=== PATIENT | female | born 1940 | race Caucasian/White ===

== ENCOUNTER 2018-07-18 20:11 | Emergency (ER) | payer MEDICARE, BC, MEDICAID ==
--- NOTE | 2018-07-18 21:13 | EDM.PDOC ---
ED HPI GENERAL MEDICAL PROBLEM - General Chief Complaint: Upper Extremity Injury/Pain Stated Complaint: FALL Time Seen by Provider: 07/18/18 20:30 Source of Information: Reports: Patient - History of Present Illness INITIAL COMMENTS - FREE TEXT/NARRATIVE: pt comes just after accidental fall with right wrist pain, she slipped on ice , she denies any other injuries or concerns. 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: Reports: Cold Therapy Right Wrist Pain Score (Numeric/FACES): 5 - Related Data Allergies Allergy/AdvReac Type Severity Reaction Status Date / Time Sulfa (Sulfonamide Allergy Shortness Verified 07/18/18 20:31 Antibiotics) of Breath Home Meds: Home Meds Aspirin [Halfprin] 81 mg PO DAILY 02/19/18 [History] Cholecalciferol (Vitamin D3) [Vitamin D3] 1,000 units PO DAILY 02/19/18 [History ] Cyanocobalamin (Vitamin B-12) [B-12] 500 mcg PO DAILY 02/19/18 [History] Glimepiride [Amaryl] 1 mg PO BIDMEALS 02/19/18 [History] Levothyroxine 75 mcg PO DAILY 02/19/18 [History] Lisinopril 20 mg PO DAILY 02/19/18 [History] Loratadine 10 mg PO DAILY 02/19/18 [History] Mv-Mn/Folic Acid/Calcium/Vit K [Women's 50 Plus Daily Formula] 1 tab PO DAILY [History] Omeprazole 20 mg PO DAILY 02/19/18 [History] PARoxetine [Paxil] 40 mg PO DAILY 02/19/18 [History] Simvastatin [Zocor] 40 mg PO BEDTIME 02/19/18 [History] metFORMIN [Glucophage XR] 1,000 mg PO BIDMEALS 02/19/18 [History] Past Medical History HEENT History: Reports: Allergic Rhinitis Cardiovascular History: Reports: CAD, High Cholesterol, Hypertension Gastrointestinal History: Reports: Other (See Below) Other Gastrointestinal History: elevated liver functins 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: Musculoskeletal History: Reports: Arthritis Psychiatric History: Reports: Addiction, Anxiety, Depression, Emotional Problems Endocrine/Metabolic History: Reports: Diabetes, Type II - Past Surgical History Musculoskeletal Surgical History: Reports: Other (See Below) Other Musculoskeletal Surgeries/Procedures:: ankle surgery, "bad" knee Social & Family History - Family History Family Medical History: Noncontributory - Tobacco Use Smoking Status *Q: Never Smoker - Caffeine Use Caffeine Use: Reports: Coffee - Recreational Drug Use Recreational Drug Use: No Review of Systems - Review of Systems Review Of Systems: See Below Constitutional: Reports: No Symptoms Eyes: Reports: No Symptoms Ears: Reports: No Symptoms Respiratory: Reports: No Symptoms Cardiovascular: Reports: No Symptoms ED EXAM, GENERAL - Physical Exam Exam: See Below Exam Limited By: No Limitations General Appearance: Alert Head: Atraumatic Neck: Normal Inspection, Supple, Non-Tender, Full Range of Motion Respiratory/Chest: No Respiratory Distress, Lungs Clear Cardiovascular: Normal Peripheral Pulses, Regular Rate, Rhythm GI/Abdominal: Normal Bowel Sounds, Non-Tender Neurological: Other (pt has swelling and pain all around right wrist. ) Course - Vital Signs Text/Narrative:: xay results were explained to pt. sugar tongue splint was applied and a sling was provided. pt to use over the counter motrin or tylenol as directed if needed and to schedule follow up with orthopedics in 2 days. Last Recorded V/S: Last Vital Signs Temp 36.8 C 07/18/18 20:11 Pulse 98 07/18/18 20:11 Resp 18 07/18/18 20:11 BP 160/75 H 07/18/18 20:11 Pulse Ox 100 07/18/18 20:11 - Orders/Labs/Meds Orders: Active Orders 24 hr Category Date Time Status Wrist Comp Min 3V Rt [CR] Stat Exams 07/18/18 20:21 Taken Departure - Departure Time of Disposition: 21:12 Disposition: Home, Self-Care 01 Clinical Impression: Wrist fracture - Discharge Information Referrals: Capo Garcia MD [Primary Care Provider] - - My Orders Last 24 Hours: My Active Orders 07/18/18 20:21 Wrist Comp Min 3V Rt [CR] Stat - Assessment/Plan Last 24 Hours: My Active Orders 07/18/18 20:21 Wrist Comp Min 3V Rt [CR] Stat
[2018-07-19 01:34] VITALS: BP 160/72
--- NOTE | 2018-07-19 15:47 | CR ---
INDICATION: Pain, decreased range of motion, fall. RIGHT WRIST: Four images of the right wrist in three projections reveal a comminuted Colles type fracture of the distal radial metaphysis with anterior angulation at the fracture site. The fracture line appears to extend through the joint surface. The ulna appears to be intact. Degenerative changes of moderate degree are noted at the navicular multangular joints and of moderate to moderately severe degree at the first metacarpocarpal joint. Mild degenerative changes are noted at the radiocarpal joint additionally along the lateral aspect of the joint - radial side. IMPRESSION: 1. Colles fracture with deformity - extends through the joint surface with slight offset at the joint surface. 2. Osteoarthritis. MTDD
== END 2018-07-18 21:29 | disposition home or self-care (01) ==
LOC: FB.ED 20:11
DX: S52.531A Colles' fracture of right radius, initial encounter for closed fracture (principal); E11.9 Type 2 diabetes mellitus without complications; I10 Essential (primary) hypertension; E78.00 Pure hypercholesterolemia, unspecified; F41.9 Anxiety disorder, unspecified; F32.9 Major depressive disorder, single episode, unspecified; Z79.84 Long term (current) use of oral hypoglycemic drugs; Z88.2 Allergy status to sulfonamides; Z79.82 Long term (current) use of aspirin; Z79.899 Other long term (current) drug therapy; W00.0XXA Fall on same level due to ice and snow, initial encounter
CPT/HCPCS: 29105; 73110-RT; 99283-25

== ENCOUNTER 2018-07-28 10:39 | Day surgery (SDC) | payer MEDICARE, BC ==
[~2018-07-28 10:39] MED LIST: Lactated Ringers 1,000 ML IV SCH; ceFAZolin 2 GM in Premix Bag 1 BAG IV ONE
[2018-07-28] MEDS ORDERED: fentaNYL 100 MCG/2 ML SDV IV ONE (10:40)
[2018-07-28] MEDS ORDERED: Lactated Ringers 1,000 ML IV ONE (10:40)
[2018-07-28] MEDS ORDERED: Lidocaine 2% 100 MG/5 ML Syringe IVPUSH ONE (10:40)
[2018-07-28] MEDS ORDERED: Dexamethasone 4 MG/ML 5 ML MDV IVPUSH ONE (10:40)
[2018-07-28] MEDS ORDERED: Labetalol 20 MG/4 ML Syringe IV ONE (10:40)
[2018-07-28] MEDS ORDERED: Ondansetron 4 MG/2 ML SDV IVPUSH ONE (10:40)
[2018-07-28] MEDS ORDERED: Propofol 200 MG/20 ML SDV IV ONE (10:40)
[2018-07-28] MEDS ORDERED: Midazolam 1 MG/ML 2 ML SDV IV ONE (10:40)
[2018-07-28] MEDS ORDERED: Ketorolac 30 MG/ML SDV IVPUSH ONE (10:40)
[2018-07-28] MEDS ORDERED: HYDROmorphone 2 MG/ML SDV IV ONE (10:40)
[2018-07-28] MEDS ORDERED: Scopolamine 1.5 MG Transdermal Patch TOP ONE (11:38)
[2018-07-28] MEDS ORDERED: ceFAZolin 2 GM in Premix Bag 1 BAG IV ONE (12:00)
--- NOTE | 2018-07-28 14:06 | PCM.OPNOTE ---
- General Post-Op/Procedure Note Date of Surgery/Procedure: 07/28/18 Operative Procedure(s): orif right distal radius Findings: right distal radius fracture, closed Pre Op Diagnosis: left distal radius fracture, closed, extra-articular Post-Op Diagnosis: same Anesthesia Technique: General ET Tube Primary Surgeon: Perry You Lens And Frames Prescription Clerk: Blanca Urban EBL in mLs: 50 Complications: none Condition: Good
--- NOTE | 2018-07-28 15:04 | CR ---
INDICATION: ORIF right wrist. C-ARM IN OR, LESS THAN ONE HOUR: 0.2 minutes C-arm fluoroscopy time was utilized in OR with a cumulative dose of 0.149 mGy. Two images were obtained with the C-arm on 07/28/18 and were compared with the preoperative study of 07/18/18, revealing a plate and multiple screws fixing the comminuted distal radial metaphyseal fracture fragments in satisfactory position and alignment. No complicating process was identified. MTDD
[2018-07-28] MEDS ORDERED: Acetaminophen/Codeine 300-30 MG Tab PO ONE (15:30)
[2018-07-28 22:43] VITALS: BP 121/52
--- NOTE | 2018-07-29 10:50 | OR ---
DATE OF OPERATION: 07/28/2018 SURGEON: Perry You DO PREOPERATIVE DIAGNOSIS: Right distal radius fracture, closed, extra-articular. POSTOPERATIVE DIAGNOSIS: Right distal radius fracture, closed, extra-articular. PROCEDURES PERFORMED: 1. Open reduction and internal fixation of right distal radius fracture. 2. Application of short-arm splint. SENIOR DYNAMICS CRM DEVELOPER: Blanca Urban NP. Nurse practitioner, Blanca Urban NP, played an essential role in assisting in this case, helping to position the patient, retract structures as needed, as well as suturing and cutting sutures as indicated. Her presence improved patient's safety and decreased operative time. ANESTHESIA: General endotracheal intubation. FLUID: Lactated Ringer's solution. ESTIMATED BLOOD LOSS: 50 mL. COMPLICATIONS: None. SPECIMEN: None. DISCHARGE DISPOSITION: Stable to PACU. INSTRUMENTATION: [place] VariAx distal radius set. INDICATIONS FOR THE PROCEDURE: The patient was seen preoperatively in the clinic. She had fallen. Preoperative imaging confirmed the above-mentioned diagnosis. Risks and benefits of the procedure were explained to the patient. Informed consent was obtained. DETAILS OF PROCEDURE: The patient was seen preoperatively by myself and the Anesthesia staff in the preoperative holding area, where the operative site was marked. She was brought to the operative suite by the Anesthesia staff, where general anesthesia was administered. All extremities were found to be well padded. The right arm had a well-padded tourniquet placed. The right upper extremity was then prepped and draped in a sterile manner. Time-out was called identifying the correct patient, the correct procedure, the correct site, and that antibiotics had been begun within appropriate period of time. The right upper extremity was exsanguinated. Tourniquet was raised to 250 mmHg. An incision was made directly over the area of the flexor carpi radialis tendon, extending distal to the joint line, approximately around 10 to 12 cm. Bleeding during the case was controlled with Bovie electrocautery. The sheath over the tendon was incised and then the tendon was retracted ulnarly at the brachioradialis, and then the dorsal portion of the tendon was incised. Weitlaners were inserted over the pronator, and the brachioradialis tendon was used to protect the radial artery. It was evident, about 10 minutes after the tourniquet was raised, that we had venous tourniquet, so it was let down, which alleviated our venous blood. The pronator was incised along its radial border. An elevator was used to clear the distal radius. The fracture site was visualized. A [place] was used to get some of the fibrous tissue out of the way, and I also used rongeurs to do this. Then, I placed the distal radius plate. We used a short distal five-hole plate and placed this preliminarily with a K- wire. I then confirmed this with a sterilely-draped fluoroscopy unit and then drilled through the oval hole and held it in place. This appeared to be in good position around 2 mm proximal to the watershed line. I then drilled my distal two ulnar holes. This showed that the fragment that was displaced dorsally on its ulnar aspect of the distal radius was reduced. However, one of this was intra-articular, which was the most ulnar one. I replaced this, which appeared very nice. We then drilled a few more holes, more on the ulnar side in the proximal hole set. Radiographs showed that the styloid fragment was displaced radially and proximally. I spent quite a bit of time getting this reduced and eventually used bone tenaculums through one of the K-wire holes on the plate and then over the skin, going through the styloid, which approximated it nicely. I then drilled my proximal and distal radial styloid holes and placed screws and then filled in the rest of my screws. This showed good screw placement with a 5- degree volar tilt and mandaeism of radial height inclination. After this had been accomplished, we copiously irrigated with Betadine infused irrigation and injected with 10 mL of 0.5% Marcaine without epinephrine and then closed with 2- 0 interrupted Vicryl sutures, and then closed the skin with horizontal mattress 3-0 nylon sutures, followed by Betadine-soaked Adaptic, followed by sponges, Webril, a volar splint and covered with KELVIN. The patient was allowed to awaken from general anesthesia and then taken to the PACU in a stable condition. She has a two-week followup. I have advised the patient and her family to leave the splint on until followup. She was given a prescription for 42 Tylenol No.3 with Codeine one p.o. t.i.d. All questions were answered. /[id number] [place]/ULISES
== END 2018-07-28 22:00 | disposition home or self-care (01) ==
LOC: FB.SDS 10:39 → FB.MS 17:00 → FB.SDS 22:00
PROVIDERS: ATTEND Orthopaedic Surgery
DX: S52.551A Other extraarticular fracture of lower end of right radius, initial encounter for closed fracture (principal); I10 Essential (primary) hypertension; E11.9 Type 2 diabetes mellitus without complications; E78.5 Hyperlipidemia, unspecified; E03.9 Hypothyroidism, unspecified; F41.9 Anxiety disorder, unspecified; Z87.891 Personal history of nicotine dependence; Z79.84 Long term (current) use of oral hypoglycemic drugs; Z79.899 Other long term (current) drug therapy; Z79.890 Hormone replacement therapy; Z88.2 Allergy status to sulfonamides; W19.XXXA Unspecified fall, initial encounter
CPT/HCPCS: 01830; 25607; 76000; 82962; A9270; C1713; J0690; J1100; J1170; J1885; J2001; J2250; J2405; J2704; J3010; J3490; J7120

== ENCOUNTER 2019-01-04 14:37 | Emergency (ER) | payer MEDICARE, BC ==
[2019-01-04] MEDS ORDERED: Sodium Chloride 0.9% 10 ML Syringe FLUSH PRN (15:06)
--- NOTE | 2019-01-04 15:09 | EDM.PDOC ---
ED HPI GENERAL MEDICAL PROBLEM - General Chief Complaint: Neuro Symptoms/Deficits Stated Complaint: CONFUSED Time Seen by Provider: 01/04/19 14:50 Source of Information: Reports: Patient, Family (Patient's daughter) History Limitations: Reports: No Limitations - History of Present Illness INITIAL COMMENTS - FREE TEXT/NARRATIVE: 78-year-old female who was feeling well until approximately 2 PM when she reports that she be in the felt somewhat nauseated and "out of it". There was somebody at her house that was helping her clean and that person felt that the patient was confused and having problems speaking and so she called the patient' s daughter who came over immediately and the daughter's impression was that the patient was having trouble talking to her and producing some words and seemed to be somewhat confused. She seemed to repetitively say things and then have staccato type speech. The daughter felt that the patient was clearly "not herself". In addition to the nausea the patient was also complaining of a mild headache. She did not notice any weakness one side of the body versus the other. The patient was having no vision problems. The patient is brought here via private vehicle by the daughter. The patient denies any pain to me at this time. She is able to converse with me but she does have problems with certain words at times and then other times seems to be able to talk fluently. She does seem somewhat confused and she does seem to confabulate at times. She did have some mild nausea but she's had no vomiting. She did report a feeling of fullness in the back of her head that she rated as a 4/10. There are no other associated signs or symptoms. There are no other modifying factors. Onset: Today (2 PM) Duration: Improving (Improve somewhat according to the daughter.) Location: Reports: Head (Reported a feeling of fullness in the back of her head at my evaluation she rated as a 4/10.) Quality: Reports: Pressure (Fullness) Severity: Mild Improves with: Reports: None Worsens with: Reports: None Associated Symptoms: Reports: Confusion, Nausea/Vomiting, Shortness of Breath ( At times but she was quite anxious.) Treatments PATIENT CARE MANAGER: Reports: Other (see below) (Nothing) Posterior headache Pain Score (Numeric/FACES): 4 - Related Data Allergies Allergy/AdvReac Type Severity Reaction Status Date / Time Sulfa (Sulfonamide Allergy Shortness Verified 01/04/19 14:45 Antibiotics) of Breath Home Meds: Home Meds Aspirin [Halfprin] 81 mg PO DAILY 02/19/18 [History] Cyanocobalamin (Vitamin B-12) [B-12] 500 mcg PO DAILY 02/19/18 [History] Glimepiride [Amaryl] 1 mg PO BIDMEALS 02/19/18 [History] Lisinopril 20 mg PO DAILY 02/19/18 [History] Omeprazole 20 mg PO DAILY 02/19/18 [History] metFORMIN [Glucophage XR] 1,000 mg PO BIDMEALS 02/19/18 [History] Levothyroxine [Synthroid] 88 mcg PO DAILY 07/23/18 [History] Atenolol 100 mg PO DAILY 01/04/19 [History] Loratadine/Pseudoephedrine [Claritin-D 24 Hour Tablet] 1 tab PO DAILY 01/04/19 [ History] PARoxetine [Paxil] 20 mg PO DAILY@1200 01/04/19 [History] Simvastatin [Zocor] 40 mg PO BEDTIME 01/04/19 [History] Spironolactone [Aldactone] 50 mg PO DAILY 01/04/19 [History] Past Medical History HEENT History: Reports: Allergic Rhinitis, Impaired Vision Cardiovascular History: Reports: High Cholesterol, Hypertension Gastrointestinal History: Reports: Colon Polyp, GERD Other Gastrointestinal History: ELEVATED LIVER FUNCTION 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 ADOPTED TWINS Musculoskeletal History: Reports: Back Pain, Chronic, Fracture Neurological History: Reports: TIA (Reported by the daughter. The patient is only on aspirin.) Psychiatric History: Reports: Addiction, Anxiety, Depression, Emotional Problems Endocrine/Metabolic History: Reports: Diabetes, Type II Hematologic History: Reports: Anemia Oncologic (Cancer) History: Reports: None Dermatologic History: Reports: None - Infectious Disease History Infectious Disease History: Reports: Chicken Pox, Measles, Mumps, Rubella, Scarlet Fever - Past Surgical History Other Musculoskeletal Surgeries/Procedures:: ankle surgery, "bad" knee Social & Family History - Tobacco Use Smoking Status *Q: Never Smoker - Caffeine Use Caffeine Use: Reports: Coffee - Alcohol Use Alcohol Use History: Yes Alcohol Use Comment: History of alcohol abuse but no call use for the past one year. She went through inpatient rehabilitation at [facility] and has been sober since that time. - Living Situation & Occupation Occupation: Retired Social History Comment: She is here with her daughter. ED ROS GENERAL - Review of Systems Review Of Systems: See Below Constitutional: Reports: No Symptoms HEENT: Reports: No Symptoms Respiratory: Reports: Shortness of Breath (Associated with her anxiety apparently. She has had several episodes even while in the emergency department that appear to be hyperventilation with normal O2 saturations.) Cardiovascular: Denies: Chest Pain, Lightheadedness Endocrine: Reports: No Symptoms GI/Abdominal: Reports: Nausea. Denies: Vomiting : Denies: Dysuria, Frequency, Hematuria, Urgency Musculoskeletal: Reports: No Symptoms Skin: Reports: No Symptoms Neurological: Reports: Headache (Mild occipital pressure headache) Hematologic/Lymphatic: Reports: No Symptoms (No chronic anticoagulation.) Immunologic: Reports: No Symptoms ED EXAM, NEURO - Physical Exam Exam: See Below Exam Limited By: No Limitations General Appearance: Alert, WD/WN, Moderate Distress (She is somewhat disorganized in her thoughts.) Eye Exam: Bilateral Eye: EOMI, Normal Inspection, PERRL Ears: Normal External Exam, Hearing Grossly Normal Nose: Normal Inspection, Normal Mucosa, No Blood Throat/Mouth: Normal Inspection, Normal Oropharynx, Normal Voice, No Airway Compromise Head Exam: Atraumatic, Normocephalic Neck: Normal Inspection, Supple, Non-Tender, Full Range of Motion Respiratory/Chest: No Respiratory Distress, Lungs Clear, Normal Breath Sounds, No Accessory Muscle Use, Chest Non-Tender Cardiovascular: Normal Peripheral Pulses, Regular Rate, Rhythm, No JVD, No Murmur GI/Abdominal: Normal Bowel Sounds, Soft, Non-Tender, No Mass Neurological: Alert, CN II-XII Intact, Normal Plantar Flexion, No Motor/Sensory Deficits, Oriented x 3, Other (She has problems finding some words. She does seem to be somewhat disorganized in her thoughts. She seems to repeat yourself and she is having word finding problems at times but is able to speak well other times. This is consistent though) Extremities: Normal Inspection, Normal Range of Motion, Non-Tender, No Pedal Edema, Normal Capillary Refill Psychiatric: Anxious Skin Exam: Warm, Dry, Intact, Normal Color, No Rash EKG INTERPRETATION EKG Date: 01/04/19 Time: 15:06 Rhythm: NSR Rate (Beats/Min): 58 [place]: Normal P-Wave: Present QRS: Other (Poor R-wave progression) ST-T: Normal QT: Normal Comparison: NA - No Prior EKG Course - Vital Signs Last Recorded V/S: Last Vital Signs Temp 35.3 C 01/04/19 14:37 Pulse 63 01/04/19 14:37 Resp 20 01/04/19 14:37 BP 144/53 H 01/04/19 14:37 Pulse Ox 100 01/04/19 14:37 - Orders/Labs/Meds Orders: Active Orders 24 hr Category Date Time Status Accu Check [Blood Glucose Check, Bedside] [RC] ONETIME Care 01/04/19 15:06 Active EKG Documentation Completion [RC] ASDIRECTED Care 01/04/19 15:07 Active CULTURE URINE [RM] Stat Lab 01/04/19 18:45 Ordered Peripheral IV Insertion Adult [OM.PC] Routine Oth 01/04/19 15:06 Ordered EKG 12 Lead [EK] Routine Ther 01/04/19 15:06 Ordered Labs: Laboratory Tests 01/04/19 01/04/19 01/04/19 Range/Units 14:40 14:50 14:50 WBC 11.3 (4.5-12.0) X10-3/uL RBC 4.58 (3.23-5.20) x10(6)uL Hgb 13.9 (11.5-15.5) g/dL Hct 40.4 (30.0-51.3) % MCV 88.2 (80-96) fL MCH 30.5 (27.7-33.6) pg MCHC 34.5 (32.2-35.4) g/dL RDW 11.6 (11.5-15.5) % Plt Count 427 H (125-369) X10(3)uL MPV 7.6 (7.4-10.4) fL Neut % (Auto) 61.8 (46-82) % Lymph % (Auto) 29.2 (13-37) % [place] % (Auto) 6.8 (4-12) % Eos % (Auto) 2 (1.0-5.0) % Baso % (Auto) 1 (0-2) % Neut # (Auto) 6.9 (1.6-8.3) # Lymph # (Auto) 3.3 (0.6-5.0) # [place] # (Auto) 0.8 (0.0-1.3) # Eos # (Auto) 0.2 (0.0-0.8) # Baso # (Auto) 0.1 (0.0-0.2) # PT 8.9 (8.7-11.1) INR 0.92 (0.89-1.13) APTT 24.8 (24.4-33.2) SECONDS Sodium 137 (135-145) mmol/L Potassium 4.4 (3.5-5.3) mmol/L Chloride 99 L (100-110) mmol/L Carbon Dioxide 27 (21-32) mmol/L BUN 24 H (7-18) mg/dL Creatinine 1.0 (0.55-1.02) mg/dL Est Cr Clr Drug Dosing 37.85 mL/min Estimated GFR (MDRD) 54 L (>60) BUN/Creatinine Ratio 24.0 H (9-20) Glucose 155 H (80-116) mg/dL Calcium 10.4 H (8.6-10.2) mg/dL Magnesium 1.2 L* (1.8-2.5) mg/dL Total Bilirubin 0.3 (0.1-1.3) mg/dL AST 19 D (5-25) IU/L ALT 31 D (12-36) U/L Alkaline Phosphatase 104 (56-112) IU/L Total Protein 7.8 (6.0-8.0) g/dL Albumin 3.7 (3.2-4.6) g/dL Globulin 4.1 g/dL Albumin/Globulin Ratio 0.9 TSH, Ultra Sensitive (0.36-3.74) IU/mL Urine Color (YELLOW) Urine Appearance (CLEAR) Urine pH (5.0-6.5) Ur Specific [place] (1.010-1.025) Urine Protein (NEGATIVE) mg/dL Urine Glucose (UA) (NORMAL) mg/dL Urine Ketones (NEGATIVE) mg/dL Urine Occult Blood (NEGATIVE) Urine Nitrite (NEGATIVE) Urine Bilirubin (NEGATIVE) Urine Urobilinogen (NEGATIVE) mg/dL Ur Leukocyte Esterase (NEGATIVE) Urine RBC (0-5) Urine WBC (0-5) Ur Squamous Epith Cells (NS,R,O) Urine Bacteria (NS) 01/04/19 01/04/19 Range/Units 14:50 15:55 WBC (4.5-12.0) X10-3/uL RBC (3.23-5.20) x10(6)uL Hgb (11.5-15.5) g/dL Hct (30.0-51.3) % MCV (80-96) fL MCH (27.7-33.6) pg MCHC (32.2-35.4) g/dL RDW (11.5-15.5) % Plt Count (125-369) X10(3)uL MPV (7.4-10.4) fL Neut % (Auto) (46-82) % Lymph % (Auto) (13-37) % [place] % (Auto) (4-12) % Eos % (Auto) (1.0-5.0) % Baso % (Auto) (0-2) % Neut # (Auto) (1.6-8.3) # Lymph # (Auto) (0.6-5.0) # [place] # (Auto) (0.0-1.3) # Eos # (Auto) (0.0-0.8) # Baso # (Auto) (0.0-0.2) # PT (8.7-11.1) INR (0.89-1.13) APTT (24.4-33.2) SECONDS Sodium (135-145) mmol/L Potassium (3.5-5.3) mmol/L Chloride (100-110) mmol/L Carbon Dioxide (21-32) mmol/L BUN (7-18) mg/dL Creatinine (0.55-1.02) mg/dL Est Cr Clr Drug Dosing mL/min Estimated GFR (MDRD) (>60) BUN/Creatinine Ratio (9-20) Glucose (80-116) mg/dL Calcium (8.6-10.2) mg/dL Magnesium (1.8-2.5) mg/dL Total Bilirubin (0.1-1.3) mg/dL AST (5-25) IU/L ALT (12-36) U/L Alkaline Phosphatase (56-112) IU/L Total Protein (6.0-8.0) g/dL Albumin (3.2-4.6) g/dL Globulin g/dL Albumin/Globulin Ratio TSH, Ultra Sensitive 2.09 (0.36-3.74) IU/mL Urine Color Yellow (YELLOW) Urine Appearance Clear (CLEAR) Urine pH 8.0 H (5.0-6.5) Ur Specific [place] 1.010 (1.010-1.025) Urine Protein Negative (NEGATIVE) mg/dL Urine Glucose (UA) Normal (NORMAL) mg/dL Urine Ketones Negative (NEGATIVE) mg/dL Urine Occult Blood Negative (NEGATIVE) Urine Nitrite Negative (NEGATIVE) Urine Bilirubin Negative (NEGATIVE) Urine Urobilinogen Normal (NEGATIVE) mg/dL Ur Leukocyte Esterase Moderate H (NEGATIVE) Urine RBC 0-5 (0-5) Urine WBC 5-10 H (0-5) Ur Squamous Epith Cells Moderate H (NS,R,O) Urine Bacteria Few H (NS) Meds: Medications Discontinued Medications Generic Name Dose Route Start Last Admin Trade Name Freq PRN Reason Stop Dose Admin Alteplase, Recombinant 6.3 mg 01/04/19 16:12 01/04/19 16:30 Activase IVPUSH 01/04/19 16:13 6.3 mg .BOLUS ONE Administration Alteplase, Recombinant 56.7 mg 01/04/19 16:14 01/04/19 16:31 Activase IV 01/04/19 16:15 56.7 mg .INFUSION ONE Administration Magnesium Sulfate 2 gm/ Premix 50 mls @ 150 mls/hr 01/04/19 15:34 01/04/19 16 :17 IV 01/04/19 15:53 150 mls/hr ONETIME ONE Administration Sodium Chloride 1,000 mls @ 50 mls/hr 01/04/19 15:45 01/04/19 16:17 Normal Saline IV 50 mls/hr ASDIRECTED DEMETRIS Administration Lorazepam 0.5 mg 01/04/19 16:12 01/04/19 16:16 Ativan IVPUSH 01/04/19 16:13 0.5 mg ONETIME ONE Administration Lorazepam Confirm 01/04/19 19:05 Ativan Administered 01/04/19 19:06 Dose 2 mg .ROUTE .STK-MED ONE Sodium Chloride 10 ml 01/04/19 15:06 01/04/19 15:40 Saline Flush FLUSH 10 ml ASDIRECTED PRN Administration Keep Vein Open - Radiology Interpretation Free Text/Narrative:: CT scan of head showed no acute abnormality per the radiologist. Specifically there was no bleed and no evidence of acute ischemic stroke. - Re-Assessments/Exams Free Text/Narrative Re-Assessment/Exam: 01/04/19 15:15: The patient's blood tests are reassuring. The CT scan of her head showed no bleeding. The patient's word finding problems and staccato speech with some confusion is still present. Her NIH stroke scale score is 2. She appears to be having an acute ischemic stroke. I discussed this with the family and they would want me to discuss her case with the neurologist at [facility] in [place]. 01/04/19 15:35: I discussed patient's case with Dr. Giles, stroke neurologist at [facility] in [place], and he feels that the patient should be offered thrombolytic therapy. I discussed this with the patient and with her family here and I have explained the risk and the benefits associated with thrombolytic therapy for acute stroke. With these risk and benefits explained, they have asked me to proceed with rumbling therapy for her acute stroke. 01/04/19 17:13: The patient sure and test did come back with white cells and bacteria present. A urine culture was sent. The patient has received her bolus of TPA and is receiving the infusion. She has remained neurologically stable at this point. Her blood pressure and pulse remained stable as well. She is awake and alert. She is being transferred via ambulance now to [facility] for admission and completion of cares. Departure - Departure Time of Disposition: 17:13 Disposition: DC/Tfer to Acute Hospital 02 Condition: Critical Clinical Impression: Acute ischemic stroke UTI (urinary tract infection) Qualifiers: Urinary tract infection type: site unspecified Hematuria presence: without hematuria Qualified Code(s): N39.0 - Urinary tract infection, site not specified - Discharge Information Referrals: Miguel Ortiz MD [ED Physician] - Forms: ED Department Discharge Critical Care Note - Critical Care Note Total Time (mins): 105 Comments: Total critical care time spent with the patient was 105 minutes. - My Orders Last 24 Hours: My Active Orders 01/04/19 15:06 Accu Check [Blood Glucose Check, Bedside] [RC] ONETIME Peripheral IV Insertion Adult [OM.PC] Routine EKG 12 Lead [EK] Routine 01/04/19 15:07 EKG Documentation Completion [RC] ASDIRECTED 01/04/19 18:45 CULTURE URINE [RM] Stat - Assessment/Plan Last 24 Hours: My Active Orders 01/04/19 15:06 Accu Check [Blood Glucose Check, Bedside] [RC] ONETIME Peripheral IV Insertion Adult [OM.PC] Routine EKG 12 Lead [EK] Routine 01/04/19 15:07 EKG Documentation Completion [RC] ASDIRECTED 01/04/19 18:45 CULTURE URINE [RM] Stat
[2019-01-04] MEDS ORDERED: Magnesium Sulfate/Water 2 GM in Premix Bag 1 BAG IV ONE (15:34)
[2019-01-04] MEDS ORDERED: Sodium Chloride 0.9% 1,000 ML IV SCH (15:45)
--- NOTE | 2019-01-04 16:06 | CT ---
INDICATION: Confusion. Finding words difficult. CT HEAD WITHOUT CONTRAST: Spiral 3.75 mm axial sections were obtained through the brain without contrast with sagittal and coronal reconstructions 01/04/19 and compared with 11/23/15. Total exam DLP = 1244.99 mGy-cm. Calcifications are noted in the vertebral arteries and the internal carotid arteries. Minimal lacunar infarcts are again suggested at the anterior frye of the internal capsule on the right. No cranial fracture site was identified. Paranasal sinuses and mastoid air cells appear to be well aerated. There is again no shift of midline structures or ventricular abnormalities except for mild prominence suggesting minimal degree of central atrophy. There are some mild white matter changes compatible with mild degree of microvascular disease. No evidence of bleeding site or hematoma or other abnormal areas of density were identified to suggest an acute intracranial abnormality. IMPRESSION: 1. No acute intracranial abnormality identified. 2. Probable minimal lacunar infarct right internal capsule. 3. Mild central atrophy. 4. Cerebrovascular disease. Report was called to Dr. Thurman at approximately [address] [facility]
[2019-01-04] MEDS ORDERED: LORazepam 2 MG/ML SDV IVPUSH ONE (16:12)
[2019-01-04] MEDS ORDERED: LORazepam 2 MG/ML SDV ONE (19:05)
[2019-01-05 12:09] VITALS: PULSE 60
[2019-01-05 12:10] VITALS: BP 127/62
== END 2019-01-04 17:13 ==
LOC: FB.ED 14:37
DX: I63.9 Cerebral infarction, unspecified (principal); N39.0 Urinary tract infection, site not specified; I10 Essential (primary) hypertension; K21.9 Gastro-esophageal reflux disease without esophagitis; E11.9 Type 2 diabetes mellitus without complications; E78.00 Pure hypercholesterolemia, unspecified; F41.9 Anxiety disorder, unspecified; F32.9 Major depressive disorder, single episode, unspecified; Z88.2 Allergy status to sulfonamides; Z79.82 Long term (current) use of aspirin; Z79.84 Long term (current) use of oral hypoglycemic drugs; Z79.899 Other long term (current) drug therapy; Z86.010 Personal history of colon polyps; Z86.73 Personal history of transient ischemic attack (TIA), and cerebral infarction without residual deficits
CPT/HCPCS: 36415; 70450; 80053; 81001; 82962; 83735; 84443; 85025; 85610; 85730; 87086; 93005; 93010; 96365; 96375; 96376; 99291; 99292; J2060; J2997; J3475; J7030; 99285-25

== ENCOUNTER 2019-10-12 06:40 | Day surgery (SDC) | payer MEDICARE, BC ==
[2019-10-12] MEDS ORDERED: Lidocaine 2% 5 ML SDV INJECT ONE (06:41)
[2019-10-12] MEDS ORDERED: Propofol 200 MG/20 ML SDV IV ONE (06:41)
[2019-10-12] MEDS ORDERED: Sodium Chloride 0.9% 10 ML Syringe FLUSH PRN (06:45)
[2019-10-12] MEDS: Lactated Ringers 1,000 ML IV SCH (08:02)
--- NOTE | 2019-10-12 09:07 | PCM.OPNOTE ---
- General Post-Op/Procedure Note Date of Surgery/Procedure: 10/12/19 Operative Procedure(s): c scope with biopsy Findings: transverse colon polyp sigmoid colon ddiverticulosis Pre Op Diagnosis: screening Post-Op Diagnosis: transverse colon polyp. sigmoid colon ddiverticulosis Anesthesia Technique: [facility] [place] Primary Surgeon: Ranjeet Escamilla Anesthesia Provider: Juan Antonio Hamm Pathology: colon polyp Complications: None Condition: Good Free Text/Narrative:: see dictation
[2019-10-12 10:32] VITALS: BP 120/58; PULSE 61
--- NOTE | 2019-10-13 08:05 | OR ---
DATE OF OPERATION: 10/12/2019 SURGEON: Ranjeet Escamilla MD PROCEDURE PERFORMED: Colonoscopy with cold forceps biopsy. PREOPERATIVE DIAGNOSIS: Need for colon cancer screening. POSTOPERATIVE DIAGNOSIS: Transverse colon polyp and sigmoid diverticulosis. INDICATIONS FOR PROCEDURE: This is a 79-year-old white female, who presents for routine screening. She was offered and accepted same. DESCRIPTION OF OPERATION: After an excellent IV sedation was administered, digital rectal exam was performed. No marked abnormality was noted. The flexible colonoscope was inserted and advanced to the cecum without difficulty. The prep was excellent. The following findings were noted: Ascending colon, unremarkable. Transverse colon, small 2 mm polypoid lesion, biopsied with the cold biopsy forceps and sent for permanent. Descending colon, unremarkable. Sigmoid, moderate to mild sigmoid diverticulosis. Rectum and anus, unremarkable. Colon was deflated as the scope was removed. The patient tolerated the procedure well, was taken to recovery room in good condition. /[id number] LIZETH/ULISES
== END 2019-10-12 10:00 | disposition home or self-care (01) ==
LOC: FB.SDS 06:40
PROVIDERS: ATTEND Surgery
DX: Z12.11 Encounter for screening for malignant neoplasm of colon (principal); D12.3 Benign neoplasm of transverse colon; K57.30 Diverticulosis of large intestine without perforation or abscess without bleeding; E78.5 Hyperlipidemia, unspecified; I10 Essential (primary) hypertension; E03.9 Hypothyroidism, unspecified; E11.9 Type 2 diabetes mellitus without complications; F41.9 Anxiety disorder, unspecified; Z88.1 Allergy status to other antibiotic agents; Z88.2 Allergy status to sulfonamides; Z79.899 Other long term (current) drug therapy; Z79.890 Hormone replacement therapy; Z79.84 Long term (current) use of oral hypoglycemic drugs; Z87.891 Personal history of nicotine dependence; K21.9 Gastro-esophageal reflux disease without esophagitis
CPT/HCPCS: 00812-QZ; 82962; 88305; J2001; J2704; J7120

== ENCOUNTER 2023-11-21 18:22 | Emergency (ER) | payer BC, MEDICARE ==
[2023-11-21] MEDS ORDERED: traMADol 50 MG Tab PO ONE (18:23)
[2023-11-21] MEDS: Bacitracin Oint 1 GM U/D Packet TOP ONE (20:10)
[2023-11-21] MEDS: Diphtheria,Pertussis(Acell),Tetanus Vaccine 0.5 ML Syringe IM ONE (21:41)
[2023-11-22 05:35] VITALS: BP 196/83; PULSE 63
== END 2023-11-21 21:57 | disposition home or self-care (01) ==
LOC: FB.ED 18:22
DX: S62.512A Displaced fracture of proximal phalanx of left thumb, initial encounter for closed fracture (principal); S51.812A Laceration without foreign body of left forearm, initial encounter; I10 Essential (primary) hypertension; E11.9 Type 2 diabetes mellitus without complications; E03.9 Hypothyroidism, unspecified; E78.00 Pure hypercholesterolemia, unspecified; K21.9 Gastro-esophageal reflux disease without esophagitis; Z86.73 Personal history of transient ischemic attack (TIA), and cerebral infarction without residual deficits; Z79.82 Long term (current) use of aspirin; Z79.84 Long term (current) use of oral hypoglycemic drugs; Z79.899 Other long term (current) drug therapy; Z23 Encounter for immunization; Z91.040 Latex allergy status; Z88.2 Allergy status to sulfonamides; W01.0XXA Fall on same level from slipping, tripping and stumbling without subsequent striking against object, initial encounter; Y93.01 Activity, walking, marching and hiking
CPT/HCPCS: 29125; 73090; 73140; 90471; 90715; 99283; A9270